=== PATIENT | female | born 1990 | race Caucasian/White ===

== ENCOUNTER 2018-06-21 19:09 | Emergency (ER) | payer OTHER ==
[2018-06-21 19:42] VITALS: TEMP 97.6; BMI 53.4
[2018-06-21] MEDS ORDERED: IBUPROFEN 400 MG TABLET (FP) PO PRN (20:51)
[2018-06-21] MEDS ORDERED: diphenhydrAMINE HCL 25 MG CAPSULE (FP) PO ONE ×4 (20:51→20:59)
[2018-06-21] MEDS ORDERED: METOCLOPRAMIDE HCL 10 MG TABLET (FP) PO ONE ×2 (20:51→20:56)
--- NOTE | 2018-06-21 20:55 | PDOC ---
History of Present Illness - General Chief Complaint: Migraine Headache Stated Complaint: Migraine Headache Time Seen by Provider: 06/21/18 20:09 History Source: Patient Exam Limitations: No Limitations - History of Present Illness Initial Comments: 06/21/18 20:52 Patient is a 11-year-old female with streaking of migraine, right breast biopsy complaining of migraine headache 1 week. States her headache is mostly in occiput, with occasional pain in the right orbital radiating to the occiput currently 8/10 and is associated with nausea, vomiting, light and sound sensitivity and scotoma. Patient states this headache is like her prior headaches, however, this headache has been longer. Usually her headaches last about 1 to 1 1/2 days. PMD: Dr. Jalloh PMHX: migraine PSocHx: neg etoh, drug, cig ALL: NKDA GENERAL/CONSTITUTIONAL: [No fever or chills. No weakness. No weight change.] HEAD, EYES, EARS, NOSE AND THROAT: [No change in vision. No ear pain or discharge. No sore throat.] CARDIOVASCULAR: [No chest pain or shortness of breath.] RESPIRATORY: [No cough, wheezing, or hemoptysis.] GASTROINTESTINAL: [No nausea, vomiting, diarrhea or constipation. No rectal bleeding.] GENITOURINARY: [No dysuria, frequency, or change in urination.] MUSCULOSKELETAL: [No joint or muscle swelling or pain. No neck or back pain.] SKIN AND BREASTS: [No rash or easy bruising.] NEUROLOGIC: (+) headache, vertigo,(-) loss of consciousness, or loss of sensation.] PSYCHIATRIC: [No depression or anxiety.] ENDOCRINE: [No increased thirst. No abnormal weight change.] HEMATOLOGIC/LYMPHATIC: [No anemia, easy bleeding, or history of blood clots.] ALLERGIC/IMMUNOLOGIC: [No hives or skin allergy. No latex allergy.] GENERAL: [The patient is awake, alert, and fully oriented, in mild distress.] HEAD: [Normal with no signs of trauma.] EYES: [Pupils equal, round and reactive to light, extraocular movements intact, sclera anicteric, conjunctiva clear.] ENT: [Ears normal, nares patent, oropharynx clear without exudates. Moist mucous membranes.] NECK: [Normal range of motion, supple without lymphadenopathy, JVD, or masses.] LUNGS: [Breath sounds equal, clear to auscultation bilaterally. No wheezes, and no crackles.] HEART: [Regular rate and rhythm, normal S1 and S2 without murmur, rub.] ABDOMEN: [Soft, nontender, normoactive bowel sounds. No guarding, no rebound. No masses.] EXTREMITIES: [Normal range of motion, no edema. No clubbing or cyanosis. No cords, erythema, or tenderness.] NEUROLOGICAL: [Cranial nerves II through XII grossly intact. Normal speech, normal gait.] PSYCH: [Normal mood, normal affect.] SKIN: [Warm, Dry, normal turgor, no rashes or lesions noted.] Past History - Past Medical History Allergies/Adverse Reactions: Allergies Allergy/AdvReac Type Severity Reaction Status Date / Time No Known Allergies Allergy Verified 09/10/13 13:46 Home Medications: Ambulatory Orders Ibuprofen [Motrin -] 600 mg PO Q4H PRN #1 tablet 04/10/14 Ondansetron [Zofran -] 4 mg PO ASDIR PRN 06/21/18 Metoclopramide HCl [Reglan] 10 mg PO TID #10 tablet 06/22/18 Asthma: No Cardiac Disorders: No CVA: No COPD: No DVT: No Diabetes: No GI Disorders: Yes (Fibroids) HTN: No Seizures: No Thyroid Disease: No Other medical history: Migraines - Immunization History Immunization Up to Date: Yes - Suicide/Smoking/Psychosocial Hx Smoking History: Never smoked Information on smoking cessation initiated: No Hx Alcohol Use: No Drug/Substance Use Hx: No Substance Use Type: None Hx Substance Use Treatment: No *Physical Exam - Vital Signs Last Vital Signs Temp Pulse Resp BP Pulse Ox 97.6 F 70 20 116/68 100 06/21/18 19:36 06/21/18 19:36 06/21/18 19:36 06/21/18 19:36 06/21/18 19:36 Medical Decision Making - Medical Decision Making 06/21/18 20:52 Patient is a 11-year-old female with streaking of migraine, right breast biopsy complaining of migraine headache 1 week. We'll treat with Benadryl and Reglan and Toradol IV, IV fluids. He was explained patient refused to have any IV meds she would rather have by mouth meds. Nurse reports that the patient does not want the Reglan by mouth since she had Zofran this morning at urgent care. Explained to the patient that this was a treatment for her headache and not for nausea but she is insistent on not taking the Reglan currently. However, would like a prescription for the Reglan. She is also requesting to have some kind of studies done for head was explained to the patient that this was not necessary since she has a history of migraine and has been treated for migraines in the past. 06/21/18 21:53 Patient is requesting to have an MRI but was told that there is no MRI available on the weekend and there needs to be an emergent situation to have an MRI. She is now insistent on having a CT of her head so she can have piece of mind. It was explained to the patient that the CT scan is a lot of radiation but she wants to have the scan anyway. 06/21/18 22:49 Patient now refuses to have CT scan done states her pain is no better. However she is willing to go home and follow up with her PMD. She does not know if her neurologist discovered by her new insurance so will call tomorrow to inquire. I discussed the physical exam findings, ancillary test results and final diagnoses with the patient. I answered all of the patient's questions. The patient was satisfied with the care received and felt comfortable with the discharge plan and treatment plan. The Patient agrees to follow up with the primary care physician within 24-72 hours. *DC/Admit/Observation/Transfer Diagnosis at time of Disposition: Migraine headache Qualifiers: Migraine type: unspecified Status migrainosus presence: without status migrainosus Intractability: not intractable Qualified Code(s): G43.909 - Migraine, unspecified, not intractable, without status migrainosus - Discharge Dispostion Disposition: HOME Condition at time of disposition: Stable - Prescriptions Prescriptions: Metoclopramide HCl [Reglan] 10 mg PO TID #10 tablet - Referrals Referrals: Azra Jalloh [Primary Care Provider] - Suresh Blue DO [Staff Physician] - - Patient Instructions Additional Instructions: Your Discharge Instructions: You must call primary care physician within 24 hours to arrange follow-up. Return to the Emergency Department with any new, persistent or worsening symptoms, for fever, chills, SOB, dizziness or any other concerning changes that may occur. - Post Discharge Activity
[2018-06-21] MEDS ORDERED: IBUPROFEN 400 MG TABLET (FP) PO ONE (20:56)
[2018-06-21 22:44] VITALS: BP 128/73; PULSE 92
== END 2018-06-21 23:00 | disposition home or self-care (01) ==
LOC: JER 19:09
DX: G43.909 Migraine, unspecified, not intractable, without status migrainosus (principal); H53.42 Scotoma of blind spot area
CPT/HCPCS: 84703; 99283-25

== ENCOUNTER 2019-11-16 15:44 | Emergency (ER) | payer OTHER ==
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
[2019-11-16 16:06] VITALS: BP 130/75; PULSE 96; TEMP 98.7; BMI 22.6
[2019-11-16 17:53] LABS: BASO % 0.2 % (0-2.0); EOS % 0.3 % (0-4.5); HEMATOCRIT 34.5 % (32.4-45.2); HEMOGLOBIN 11.1 GM/dL (10.7-15.3); LYMPH % 11.6 % (8-40); MCH 25.3 pg (25.7-33.7); MCHC 32.1 g/dl (32.0-36.0); MEAN PLT VOLUME 10.3 fl (7.5-11.1); MONO % 5.3 % (3.8-10.2); NEUT % 82.6 % (42.8-82.8); PLATELET COUNT 270 K/MM3 (134-434); RBC 4.36 M/mm3 (3.60-5.2); RDW 13.5 % (11.6-15.6)
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
[2019-11-16 18:27] LABS: ALBUMIN 3.8 g/dl (3.4-5.0); ALK PHOS 43 U/L (45-117); ANION GAP 6 MMOL/L (8-16); BILIRUBIN,TOTAL 0.4 mg/dL (0.2-1); BLOOD UREA NITROGEN 15.3 mg/dL (7-18); CALCIUM 9.1 mg/dL (8.5-10.1); CHLORIDE 108 mmol/L (98-107); CO2 27 mmol/L (21-32); CREATININE 0.9 mg/dL (0.55-1.3); GLUCOSE,RANDOM 86 mg/dL (74-106); POTASSIUM 3.8 mmol/L (3.5-5.1); SGOT/AST 9 U/L (15-37); SGPT/ALT 21 U/L (13-61); SODIUM 141 mmol/L (136-145); TOT PROT 7.4 g/dl (6.4-8.2)
--- NOTE | 2019-11-17 15:34 | EKG ---
Test Reason : Blood Pressure : / mmHG Vent. Rate : 064 BPM Atrial Rate : 064 BPM P-R Int : 146 ms QRS Dur : 088 ms QT Int : 398 ms P-R-T Axes : -14 093 104 degrees QTc Int : 410 ms NORMAL SINUS RHYTHM POSSIBLE LATERAL INFARCT , AGE UNDETERMINED T WAVE ABNORMALITY, CONSIDER ANTERIOR ISCHEMIA ABNORMAL ECG WHEN COMPARED WITH ECG OF 10-SEP-2013 13:58, BORDERLINE CRITERIA FOR LATERAL INFARCT ARE NOW PRESENT Confirmed by MD Lluvia, Sunny ([id number]) on 11/17/2019 3:34:07 PM Referred By: Confirmed By:Sunny Teixeira MD
== END 2019-11-16 19:00 | disposition home or self-care (01) ==
LOC: JER 15:44
DX: F41.9 Anxiety disorder, unspecified (principal); Z63.79 Other stressful life events affecting family and household
CPT/HCPCS: 36415; 80053; 84443; 84484; 85025; 93005; 93010; 99282-25

== ENCOUNTER 2023-03-17 03:15 | Inpatient (IN) | payer OTHER ==
[2023-03-17] MEDS ORDERED: WITCH HAZEL 50% (TUCKS) 40 PAD/JAR PAD TP PRN (04:07)
[2023-03-17] MEDS ORDERED: BISACODYL 10 MG SUPP.RECT RC PRN (04:07)
[2023-03-17] MEDS ORDERED: METHYLERGONOVINE MALEATE 0.2 MG/1 ML AMP IM PRN (04:07)
[2023-03-17] MEDS ORDERED: ACETAMINOPHEN 325 MG TABLET (FP) PO PRN (04:07)
[2023-03-17] MEDS ORDERED: BENZOCAINE 20% 57 GM BOTTLE TP PRN (04:07)
[2023-03-17] MEDS ORDERED: oxyCODONE HCL 5 MG TABLET PO PRN (04:07)
[2023-03-17] MEDS ORDERED: BENZOCAINE 28 GM HEMORRHOIDAL OINTMENT TP PRN (04:07)
[2023-03-17] MEDS ORDERED: OXYTOCIN 20 UNITS in 0.9% NS 20 UNIT/1,000 ML INFUS.BAG IV SCH (04:15)
[2023-03-17] MEDS ORDERED: OXYTOCIN 20 UNITS in 0.9% NS 20 UNIT/1,000 ML INFUS.BAG IV ONE (04:58)
[2023-03-17 05:54] LABS: BASO % 0.4 % (0-2.0); EOS % 0.2 % (0-4.5); HEMOGLOBIN 11.5 GM/dL (10.7-15.3); LYMPH % 6.5 % (8-40); MCH 27.2 pg (25.7-33.7); MEAN CELL VOLUME 82.5 fl (80-96); MEAN PLT VOLUME 10.7 fl (7.5-11.1); MONO % 4.7 % (3.8-10.2); NEUT % 88.2 % (42.8-82.8); PLATELET COUNT 171 10^3/uL (134-434); RBC 4.25 M/mm3 (3.60-5.2); RDW 15.6 % (11.6-15.6); WHITE BLOOD COUNT 12.3 K/mm3 (4.0-10.0)
[2023-03-17 06:04] LABS: INR 0.99 (0.83-1.09); PROTHROMBIN TIME (PATIENT) 11.5 SEC (9.7-13.0)
[2023-03-17 06:07] LABS: ACTIVATED PTT 26.5 SECONDS (25.2-36.5)
[2023-03-17 06:13] LABS: CALCIUM 8.2 mg/dL (8.5-10.1)
[2023-03-17 06:17] LABS: CREATININE 0.5 mg/dL (0.55-1.3)
[2023-03-17 06:37] VITALS: BMI 29.8
[2023-03-17] MEDS: IBUPROFEN 600 MG TABLET (FP) PO PRN ×2 (08:25→17:37)
[2023-03-17] MEDS: FERROUS SO4 325 MG TABLET (FP) PO SCH ×3 (08:25→17:37)
[2023-03-17] MEDS: PRENATAL VITAMINS W/ FOLIC ACID TABLET (FP) PO SCH (09:45)
[2023-03-18 06:45] LABS: BASO % 0.3 % (0-2.0); EOS % 1.5 % (0-4.5); HEMATOCRIT 31.2 % (32.4-45.2); HEMOGLOBIN 10.6 GM/dL (10.7-15.3); LYMPH % 18.2 % (8-40); MCH 27.9 pg (25.7-33.7); MCHC 33.8 g/dl (32.0-36.0); MEAN CELL VOLUME 82.6 fl (80-96); MEAN PLT VOLUME 10.6 fl (7.5-11.1); MONO % 7.1 % (3.8-10.2); NEUT % 72.9 % (42.8-82.8); PLATELET COUNT 163 10^3/uL (134-434); RBC 3.78 M/mm3 (3.60-5.2); RDW 15.6 % (11.6-15.6); WHITE BLOOD COUNT 9.2 K/mm3 (4.0-10.0)
[2023-03-18] MEDS: PRENATAL VITAMINS W/ FOLIC ACID TABLET (FP) PO SCH (10:07)
[2023-03-18] MEDS: FERROUS SO4 325 MG TABLET (FP) PO SCH ×3 (10:07→17:37)
[2023-03-18] MEDS ORDERED: SENNOSIDES/DOCUSATE COMBO (SENNA PLUS) TABLET (UD) PO PRN (22:00)
[2023-03-18 23:13] VITALS: TEMP 98.6
[2023-03-19] MEDS: IBUPROFEN 600 MG TABLET (FP) PO PRN (09:04)
[2023-03-19] MEDS: FERROUS SO4 325 MG TABLET (FP) PO SCH ×2 (09:04→12:51)
[2023-03-19] MEDS: PRENATAL VITAMINS W/ FOLIC ACID TABLET (FP) PO SCH (09:05)
[2023-03-19 10:13] VITALS: BP 112/67; PULSE 75; RESP 18
== END 2023-03-19 13:30 | disposition home or self-care (01) | DRG 807 ==
LOC: JLDR 03:15 → J3W 07:43
PROVIDERS: ADMIT Obstetrics & Gynecology; ATTEND Obstetrics & Gynecology
PROC: 10E0XZZ Delivery of Products of Conception, External Approach (ICD-10-PCS; principal; 2023-03-17)
PROC: 0KQM0ZZ Repair Perineum Muscle, Open Approach (ICD-10-PCS; 2023-03-17)
DX: O99.824 Streptococcus B carrier state complicating childbirth (principal); Z37.0 Single live birth; O69.81X0 Labor and delivery complicated by cord around neck, without compression, not applicable or unspecified; O70.1 Second degree perineal laceration during delivery; Z3A.39 39 weeks gestation of pregnancy
CPT/HCPCS: 36415; 80048; 85025; 85610; 85730; 86780; 86850; 86900; 86901; C9803-CS; U0003; U0005